=== PATIENT | male | born 1985 | race Two or more races ===

== ENCOUNTER 2021-05-05 21:14 | Emergency (ER) | payer BC, OTHER ==
[~2021-05-05] VITALS: Ht 177.8 cm; Wt 93.0 kg
[2021-05-05 21:23] VITALS: BP 114/80
[2021-05-06] MEDS ORDERED: BACITRACIN TOP OINT 1 UD PKG TOP ONE (01:45)
== END 2021-05-06 01:45 | disposition home or self-care (01) ==
LOC: ER 21:14
DX: S61.451A Open bite of right hand, initial encounter (principal); W54.0XXA Bitten by dog, initial encounter; Y93.89 Activity, other specified; Y92.89 Other specified places as the place of occurrence of the external cause; Y99.8 Other external cause status
CPT/HCPCS: 73130